=== PATIENT | male | born 1970 | race Caucasian/White ===

== ENCOUNTER 2022-03-10 11:35 | Inpatient (IN) | payer OTHER ==
[~2022-03-10] VITALS: Ht 167.6 cm; Wt 57.4 kg
[2022-03-10 12:00] VITALS: BP 133/82
[2022-03-10 12:23] LABS: BASO % 0.4 % (0.0-1.0); EOS # 0.1 10*3/uL (0.0-0.4); EOS % 1.4 % (1.0-4.0); HEMATOCRIT 37.9 % (42.0-52.0); LYMPH % 23.6 % (27.0-41.0); MEAN CELL VOLUME 90.2 fl (80.0-94.0); MEAN CORPUSCULAR HGB 30.5 pg (27.0-31.0); MEAN CORPUSCULAR HGB CONC 33.8 g/dl (33.0-37.0); MEAN PLATELET VOLUME 8.9 fl (9.6-12.3); MONO # 0.8 10*3/uL (0.1-1.0); MONO % 9.8 % (3.0-9.0); NEUT # 5.4 10*3/uL (2.3-7.9); NEUT % 64.6 % (47.0-73.0); PLATELET COUNT AUTOMATED 254 10*3/uL (130-400); RED CELL DISTRI WIDTH 12.8 % (0-14.5); WHITE BLOOD COUNT 8.4 10*3/uL (4.8-10.8)
[2022-03-10 12:38] LABS: ALKALINE PHOSPHATASE 59 U/L (45-117); BUN 14 mg/dl (7-24); CHLORIDE 104 mmol/L (98-107); CREATININE 0.77 mg/dL (0.70-1.30); POTASSIUM 3.7 mmol/L (3.5-5.1); SGOT/AST 57 IU/L (3-35); SGPT/ALT 51 U/L (12-78); SODIUM 137 mmol/L (136-145)
[2022-03-10 12:41] LABS: ETHYL ALCOHOL < 3.0 mg/dl (<3)
[2022-03-10 16:00] VITALS: BP 136/85
[2022-03-10 20:00] VITALS: BP 152/96
[2022-03-10 20:01] LABS: BILIRUBIN Negative (Negative); BLOOD 1+ (Negative); CLARITY Cloudy (Clear); COLOR Yellow (Yellow); GLUCOSE Negative (Negative); KETONE Trace (Negative); LEUKO ESTERASE Negative (Negative); NITRITE Negative (Negative); PH 5.5 (4.5-8.0); UROBILINOGEN 0.2 E.U./dl (0.0-1.0)
[2022-03-10 20:09] LABS: URINE AMPHETAMINES < 1000 (1000ng/ml); URINE BARBITURATES < 200 (200ng/ml); URINE BENZODIAZEPINES < 200 (200ng/ml); URINE CANNABINOIDS (THC) > 50 (50ng/ml); URINE COCAINE > 300 (300ng/ml); URINE METHADONE < 300 (300ng/ml); URINE OPIATES > 300 (300ng/ml)
[2022-03-10 20:11] LABS: URINE PHENCYCLIDINE < 25 (25ng/ml)
[2022-03-10 20:13] LABS: BACTERIA TRACE; EPITHELIAL CELLS 0-2; MUCOUS 3+; WBC 0-2 wbc/hpf (0-5)
[2022-03-10 20:14] LABS: RBC 0-2 rbc/hpf (0-2)
[2022-03-11] VITALS: BP 130/80
[2022-03-11 08:00] VITALS: BP 105/68
[2022-03-11 12:00] VITALS: BP 136/88
[2022-03-11 16:00] VITALS: BP 140/80
[2022-03-11 20:00] VITALS: BP 121/74
[2022-03-12] VITALS: BP 145/60
[2022-03-12 08:00] VITALS: BP 110/73
[2022-03-12] MEDS ORDERED: NATURE'S BLEND F1 MG PO (11:09)
[2022-03-12] MEDS ORDERED: ATARAX,VISTARIL50 MG PO (11:09)
[2022-03-12] MEDS ORDERED: METHOCARBAMOL750 M1 PO (11:09)
[2022-03-12] MEDS ORDERED: VITAMIN B-1100 M1 PO (11:09)
[2022-03-12] MEDS ORDERED: ONDANSETRON HYDR4 M1 PO (11:09)
[2022-03-12] MEDS ORDERED: ROPINIROLE HYD0.5 MG PO (11:09)
[2022-03-12] MEDS ORDERED: THERA TABLET400 MCG PO (11:09)
[2022-03-12 16:00] VITALS: BP 102/64
[2022-03-12 20:00] VITALS: BP 131/86
[2022-03-13] VITALS: BP 154/69
== END 2022-03-13 12:13 | disposition left against medical advice (07) | DRG 770 ==
LOC: LAB 11:35 → EDSTATUS 11:36 → 4E 11:36
PROVIDERS: Registered Nurse; ADMIT Internal Medicine; ATTEND Internal Medicine
DX: F11.23 Opioid dependence with withdrawal (principal); F41.9 Anxiety disorder, unspecified; G62.9 Polyneuropathy, unspecified; I51.7 Cardiomegaly; Z53.29 Procedure and treatment not carried out because of patient's decision for other reasons; Z82.49 Family history of ischemic heart disease and other diseases of the circulatory system

== ENCOUNTER 2022-04-14 12:07 | Inpatient (IN) | payer OTHER ==
[~2022-04-14] VITALS: Ht 167.6 cm; Wt 60.1 kg
[~2022-04-14 12:07] MED LIST: ATARAX,VISTARIL50 MG PO; METHOCARBAMOL750 M1 PO; NATURE'S BLEND F1 MG PO; ONDANSETRON HYDR4 M1 PO; ROPINIROLE HYD0.5 MG PO; THERA TABLET400 MCG PO; VITAMIN B-1100 M1 PO
[2022-04-14 12:25] VITALS: BP 132/82
[2022-04-14 13:15] LABS: BASO % 0.3 % (0.0-1.0); EOS # 0.2 10*3/uL (0.0-0.4); HEMATOCRIT 35.5 % (42.0-52.0); LYMPH # 2.1 10*3/uL (1.3-4.4); LYMPH % 23.6 % (27.0-41.0); MEAN CELL VOLUME 94.9 fl (80.0-94.0); MEAN CORPUSCULAR HGB 31.3 pg (27.0-31.0); MEAN PLATELET VOLUME 8.2 fl (9.6-12.3); MONO # 1.1 10*3/uL (0.1-1.0); MONO % 12.1 % (3.0-9.0); NEUT # 5.6 10*3/uL (2.3-7.9); NEUT % 61.7 % (47.0-73.0); PLATELET COUNT AUTOMATED 340 10*3/uL (130-400); RED BLOOD COUNT 3.74 10*6/uL (4.50-5.90); RED CELL DISTRI WIDTH 14.8 % (0-14.5); WHITE BLOOD COUNT 9.1 10*3/uL (4.8-10.8)
[2022-04-14 13:29] LABS: ALKALINE PHOSPHATASE 71 U/L (45-117); BUN 20 mg/dl (7-24); CHLORIDE 111 mmol/L (98-107); CREATININE 0.74 mg/dL (0.70-1.30); POTASSIUM 4.1 mmol/L (3.5-5.1); SGOT/AST 29 IU/L (3-35); SGPT/ALT 41 U/L (12-78); SODIUM 140 mmol/L (136-145); TOTAL PROTEIN 7.2 gm/dL (6.4-8.2)
[2022-04-14 13:37] LABS: ETHYL ALCOHOL < 3.0 mg/dl (<3)
[2022-04-14 14:36] LABS: BILIRUBIN Negative (Negative); BLOOD Trace-Lysed (Negative); CLARITY Clear (Clear); COLOR Yellow (Yellow); GLUCOSE Negative (Negative); KETONE Negative (Negative); LEUKO ESTERASE Negative (Negative); NITRITE Negative (Negative); SPECIFIC GRAVITY 1.025 (1.001-1.030); UROBILINOGEN 0.2 E.U./dl (0.0-1.0)
[2022-04-14 14:50] VITALS: BP 137/79
[2022-04-14 14:59] LABS: URINE AMPHETAMINES < 1000 (1000ng/ml); URINE BARBITURATES < 200 (200ng/ml); URINE BENZODIAZEPINES < 200 (200ng/ml); URINE CANNABINOIDS (THC) > 50 (50ng/ml); URINE COCAINE > 300 (300ng/ml); URINE METHADONE < 300 (300ng/ml); URINE OPIATES < 300 (300ng/ml)
[2022-04-14 15:18] LABS: URINE PHENCYCLIDINE < 25 (25ng/ml)
[2022-04-14 16:00] VITALS: BP 144/76
[2022-04-14 20:00] VITALS: BP 122/68
[2022-04-15] VITALS: BP 120/76
[2022-04-15 08:00] VITALS: BP 152/96
[2022-04-15 12:00] VITALS: BP 125/70
[2022-04-15 16:00] VITALS: BP 99/50
[2022-04-15 20:00] VITALS: BP 103/59
[2022-04-16] VITALS: BP 114/60
[2022-04-16 06:02] LABS: BUN 13 mg/dl (7-24); CHLORIDE 111 mmol/L (98-107); CREATININE 0.71 mg/dL (0.70-1.30); POTASSIUM 4.5 mmol/L (3.5-5.1); SODIUM 144 mmol/L (136-145)
[2022-04-16 06:27] LABS: BASO % 0.5 % (0.0-1.0); EOS # 0.2 10*3/uL (0.0-0.4); HEMATOCRIT 41.3 % (42.0-52.0); LYMPH # 2.1 10*3/uL (1.3-4.4); LYMPH % 27.7 % (27.0-41.0); MEAN CELL VOLUME 96.7 fl (80.0-94.0); MEAN CORPUSCULAR HGB 30.7 pg (27.0-31.0); MEAN CORPUSCULAR HGB CONC 31.7 g/dl (33.0-37.0); MEAN PLATELET VOLUME 8.6 fl (9.6-12.3); MONO % 12.5 % (3.0-9.0); NEUT # 4.3 10*3/uL (2.3-7.9); NEUT % 55.4 % (47.0-73.0); PLATELET COUNT AUTOMATED 369 10*3/uL (130-400); RED BLOOD COUNT 4.27 10*6/uL (4.50-5.90); RED CELL DISTRI WIDTH 15.1 % (0-14.5); WHITE BLOOD COUNT 7.7 10*3/uL (4.8-10.8)
[2022-04-16 08:00] VITALS: BP 103/55
[2022-04-16 12:00] VITALS: BP 120/68
[2022-04-16 16:00] VITALS: BP 106/84
[2022-04-16 20:00] VITALS: BP 137/87
[2022-04-17] VITALS: BP 136/74
[2022-04-17 08:00] VITALS: BP 140/80
[2022-04-17] MEDS ORDERED: ONDANSETRON HYDR4 M1 PO (08:37)
[2022-04-17] MEDS ORDERED: ATARAX,VISTARIL50 MG PO (08:37)
== END 2022-04-17 09:00 | disposition home or self-care (01) | DRG 773 ==
LOC: ED 12:07 → EDHOLD 13:43 → 4E 13:43
PROVIDERS: Emergency Medicine; Student in an Organized Health Care Education/Training Program; ADMIT Internal Medicine; ATTEND Internal Medicine
DX: F11.90 Opioid use, unspecified, uncomplicated (principal); F14.10 Cocaine abuse, uncomplicated; F41.9 Anxiety disorder, unspecified; G62.9 Polyneuropathy, unspecified; M54.30 Sciatica, unspecified side; F17.210 Nicotine dependence, cigarettes, uncomplicated; F19.90 Other psychoactive substance use, unspecified, uncomplicated; M79.605 Pain in left leg; Z82.49 Family history of ischemic heart disease and other diseases of the circulatory system; Z84.89 Family history of other specified conditions